=== PATIENT | female | born 1995 | race Hispanic/Latino ===

== ENCOUNTER 2024-07-23 13:03 | Day surgery (SDC) | payer BC, SELFPAY ==
[2024-07-23 14:43] VITALS: BMI 37.3
[2024-07-23] MEDS ORDERED: hydrALAZINE 20 MG/ML VIAL SLOW IVP PRN (14:50)
== END 2024-07-23 16:30 | disposition home health service (06) ==
LOC: CSHLD/OP 13:03
PROVIDERS: ATTEND Student in an Organized Health Care Education/Training Program
DX: O26.852 Spotting complicating pregnancy, second trimester (principal); O99.891 Other specified diseases and conditions complicating pregnancy; R10.11 Right upper quadrant pain; R30.9 Painful micturition, unspecified; O99.212 Obesity complicating pregnancy, second trimester; O22.42 Hemorrhoids in pregnancy, second trimester; O24.312 Unspecified pre-existing diabetes mellitus in pregnancy, second trimester; Z3A.25 25 weeks gestation of pregnancy; Z90.49 Acquired absence of other specified parts of digestive tract; Z79.51 Long term (current) use of inhaled steroids; Z79.82 Long term (current) use of aspirin; Z79.2 Long term (current) use of antibiotics; Z79.899 Other long term (current) drug therapy
CPT/HCPCS: 99285

== ENCOUNTER 2024-10-23 10:08 | Inpatient (IN) | payer BC ==
[2024-10-22 10:40] LABS: Hematocrit 36.6 % (34.9-44.5); Hemoglobin 12.1 g/dL (12.0-15.5); Mean Corpuscular HGB CONC 33.1 g/dL (32.0-36.0); Mean Corpuscular Hemoglobin 27.4 pg (27.0-33.0); Mean Platelet Volume 11.1 fL (7.4-10.4); Platelet Count 318 10x3/uL (150-450); RBC Distribution Width 13.8 % (11.5-14.5); Red Blood Cell (RBC) Count 4.41 10x6/uL (3.90-5.03); White Blood Cell (WBC) Count 7.39 10x3/uL (3.5-10.5)
[2024-10-22 11:17] LABS: Syphilis Antibody Nonreactive (Nonreactive); Syphilis Antibody Index 0.09 S/CO (<1.00 Non-Reactive)
[2024-10-22 11:19] LABS: HBsAg Index 0.27 S/CO (0-0.99); Hep B Surf Ag Non-Reactive S/CO (NonReactive)
[2024-10-23 10:59] VITALS: BMI 38.8
[2024-10-23] MEDS ORDERED: hydrALAZINE 20 MG/ML VIAL SLOW IVP PRN ×2 (11:25→13:14)
[2024-10-23] MEDS ORDERED: Tranexamic Acid 1,000 MG/10 ML VIAL IVP PRN (11:25)
[2024-10-23] MEDS ORDERED: Famotidine/PF 20 mg/2ml Vial SLOW IVP PRN (11:25)
[2024-10-23] MEDS ORDERED: Ondansetron PF 4 MG/2 ML Vial IVP PRN (11:25)
[2024-10-23] MEDS ORDERED: Diphenoxylate HCl/Atropine Tablet PO PRN ×2 (11:25)
[2024-10-23] MEDS ORDERED: Methylergonovine 0.2 MG/ML VIAL IM PRN ×2 (11:25→13:14)
[2024-10-23] MEDS ORDERED: Carboprost 250 MCG/ML AMP IM PRN (11:25)
[2024-10-23] MEDS ORDERED: Bicitra 30 ML UDCUP PO PRN (11:25)
[2024-10-23] MEDS ORDERED: Misoprostol 200 MCG TAB PR PRN ×2 (11:25→13:14)
[2024-10-23] MEDS ORDERED: Promethazine HCl 25 MG/ML VIAL IM PRN (11:25)
[2024-10-23] MEDS ORDERED: CEFAZOLIN 2 GM in Sodium Chloride 0.9% 100 ML IVPB SCH (11:30)
[2024-10-23] MEDS ORDERED: Oxytocin 30 units/NS 500 ML 500 ML IV SCH ×2 (11:30→13:15)
[2024-10-23] MEDS ORDERED: Bisacodyl 10 MG SUPP PR PRN (13:14)
[2024-10-23] MEDS ORDERED: Acetaminophen 325 MG TAB PO PRN (13:14)
[2024-10-23] MEDS: CEFAZOLIN 2 GM VIAL ONE (16:15)
[2024-10-23] MEDS: Morphine PF 10 MG/10 ML VIAL ONE (16:15)
[2024-10-23] MEDS: Ondansetron PF 4 MG/2 ML Vial ONE (16:16)
[2024-10-23] MEDS: PHENYLEPHRINE-NS 100 MCG/ML 10 ML SYRINGE ONE (16:16)
[2024-10-23] MEDS: Oxytocin 10 UNITS/ML VIAL ONE ×2 (16:16→16:17)
[2024-10-23] MEDS: Carboprost 250 MCG/ML AMP ONE (16:17)
[2024-10-23] MEDS: Methylergonovine 0.2 MG/ML VIAL ONE ×2 (16:17)
[2024-10-23] MEDS: Boostrix 0.5 ML (Tdap) VIAL (>/=7 yrs of age) IM ONE (16:17)
[2024-10-23] MEDS: Ibuprofen 800 MG TAB PO SCH (16:18)
[2024-10-23] MEDS ORDERED: Measles/Mumps/Rubella 10 MCG/0.5 ML VIAL SC ONE (17:00)
[2024-10-23] MEDS: Ketorolac Tromethamine 30 MG (1 mL) VIAL IVP PRN (21:40)
[2024-10-23] MEDS: Ferrous Sulfate 325 MG TAB PO SCH (22:02)
[2024-10-24 04:46] LABS: Hematocrit 31.4 % (34.9-44.5); Hemoglobin 10.7 g/dL (12.0-15.5); Mean Corpuscular HGB CONC 34.1 g/dL (32.0-36.0); Mean Corpuscular Hemoglobin 28.5 pg (27.0-33.0); Mean Corpuscular Volume 83.5 fL (81.6-98.3); Mean Platelet Volume 11.2 fL (7.4-10.4); Platelet Count 265 10x3/uL (150-450); RBC Distribution Width 13.8 % (11.5-14.5); Red Blood Cell (RBC) Count 3.76 10x6/uL (3.90-5.03); White Blood Cell (WBC) Count 7.49 10x3/uL (3.5-10.5)
[2024-10-24] MEDS: Ibuprofen 800 MG TAB PO SCH (05:19)
[2024-10-24] MEDS: Prenatal Vitamin 1 TAB PO SCH (08:00)
[2024-10-24] MEDS: HYDROcodone/Acetaminophen 5/325 mg Tablet PO PRN (08:00)
[2024-10-24] MEDS: Bisacodyl 10 MG SUPP PR SCH (09:03)
[2024-10-24] MEDS: Polyethylene Glycol 3350 17 GM Packet PO SCH (09:43)
[2024-10-25 07:58] VITALS: BP 99/63; TEMP 97.9
== END 2024-10-25 13:30 | disposition home or self-care (01) | DRG 785 ==
LOC: CSHLD 10:08 → CSHPP 15:43
PROVIDERS: ADMIT Family Medicine; ATTEND Family Medicine
PROC: 10D00Z1 Extraction of Products of Conception, Low, Open Approach (ICD-10-PCS; principal; 2024-10-23)
PROC: 0UB70ZZ Excision of Bilateral Fallopian Tubes, Open Approach (ICD-10-PCS; 2024-10-23)
DX: O34.211 Maternal care for low transverse scar from previous cesarean delivery (principal); O99.892 Other specified diseases and conditions complicating childbirth; R73.03 Prediabetes; O42.02 Full-term premature rupture of membranes, onset of labor within 24 hours of rupture; O99.284 Endocrine, nutritional and metabolic diseases complicating childbirth; E03.8 Other specified hypothyroidism; O99.214 Obesity complicating childbirth; Z3A.39 39 weeks gestation of pregnancy; Z37.0 Single live birth; Z80.9 Family history of malignant neoplasm, unspecified
CPT/HCPCS: 36415; 51702; 85027; 86780; 86850; 86900; 86901; 87340; J1885; J2210; J2274; J2405; J2590